=== PATIENT | female | born 1955 | race Caucasian/White ===

== ENCOUNTER 2021-09-02 15:55 | Emergency (ER) | payer OTHER, BC ==
[~2021-09-02] VITALS: Ht 152.4 cm; Wt 61.4 kg
[2021-09-02] MEDS ORDERED: EFFE75CA2 PO (16:14)
[2021-09-02] MEDS ORDERED: JANU50TA8 PO (16:14)
[2021-09-02] MEDS ORDERED: ASPI81TA26 PO (16:14)
[2021-09-02] MEDS ORDERED: BOOSTRIX/ADACEL VACCINE (DIPHTH/PERTUSS/ACELL/TETANUS) 0.5ML SYR IM.IMMUN ONE (16:30)
[2021-09-02] MEDS ORDERED: ACETAMINOPHEN 500 MG TAB PO ONE (16:55)
[2021-09-02] MEDS ORDERED: CYCL5TAB PO (17:47)
[2021-09-02 17:53] VITALS: BP 139/60
== END 2021-09-02 17:54 | disposition home or self-care (01) ==
LOC: M ED 15:55
DX: S29.012A Strain of muscle and tendon of back wall of thorax, initial encounter (principal); S39.012A Strain of muscle, fascia and tendon of lower back, initial encounter; S20.211A Contusion of right front wall of thorax, initial encounter; S80.211A Abrasion, right knee, initial encounter; V49.49XA Driver injured in collision with other motor vehicles in traffic accident, initial encounter; Y92.410 Unspecified street and highway as the place of occurrence of the external cause; Z79.899 Other long term (current) drug therapy; Z79.82 Long term (current) use of aspirin